=== PATIENT | female | born 1980 | race Caucasian/White ===

== ENCOUNTER 2016-12-24 09:49 | Emergency (ER) | payer SELFPAY ==
[2016-12-24 10:01] VITALS: RESP 17; TEMP 98.2
--- NOTE | 2016-12-24 11:00 | EDPHY ---
H & P Stated Complaint: red area l calf post 20 hr flight Time Seen by Provider: 12/24/16 10:10 HPI/ROS: CHIEF COMPLAINT: left calf pain HISTORY OF PRESENT ILLNESS: 36-year-old female presents emergency department complaining of left calf pain that she noticed this morning. Patient was on a 20 hour flight from [place] 2 days ago. She has a history of DVT. Patient denies chest pain or shortness of breath, no known trauma, no numbness or tingling to this extremity, no other complaints. REVIEW OF SYSTEMS: A comprehensive 10 point review of systems is otherwise negative aside from elements mentioned in the history of present illness. Source: Patient Exam Limitations: No limitations - Personal History LMP (Females 10-55): 15-21 Days Ago Current Tetanus/Diphtheria Vaccine: Unsure - Medical/Surgical History Hx Asthma: No Hx Chronic Respiratory Disease: No Hx Diabetes: No Hx Cardiac Disease: No Hx Renal Disease: No Hx Cirrhosis: No Hx Alcoholism: No Hx HIV/AIDS: No Hx Splenectomy or Spleen Trauma: No Other PMH: dvt/gastritis/thyroid issue - Social History Smoking Status: Current every day smoker - Physical Exam Exam: GEN: Awake, alert, oriented, no acute distress RESP: nl resp effort MSK: Left calf with no swelling, multiple varicosities, no mass, mild area of ecchymosis/hematoma to medial, proximal left calf. 2+ pedal pulses, sensation intact to light touch, full range of motion of left knee and ankle SKIN: No break in skin Constitutional: Initial Vital Signs Temperature (C) 36.8 C 12/24/16 09:58 Heart Rate 69 12/24/16 09:58 Respiratory Rate 17 12/24/16 09:58 Blood Pressure 130/79 H 12/24/16 09:58 O2 Sat (%) 97 12/24/16 09:58 O2 Delivery Mode Room Air Allergies/Adverse Reactions: No Known Allergies Allergy (Unverified 12/24/16 09:58) Home Medications: Medication Instructions Recorded Levothyroxine 12/24/16 Medical Decision Making - Diagnostics Imaging Results: Imaging Impressions Extremity Venous Study 12/24/16 10:10 Impression: No evidence of deep vein thrombosis. Findings discussed with Keyla Valadez NP 12/24/2016 at 10:53. Imaging: Discussed imaging studies w/ yard caller Radiologist ED Course/Re-evaluation: Ultrasound shows no evidence of DVT or Bee cyst. Pain is likely muscular in nature. I have recommended rest, ice, elevate, ibuprofen. She just arrived in [place] 2 days ago. She has been given primary care for follow-up. She is given return precautions. Differential Diagnosis: Diagnosis considered but not limited to muscle spasm, musculoskeletal strain, DVT Departure - Departure Disposition: Home, Routine, Self-Care Clinical Impression: Pain of left calf Condition: Good Instructions: Leg Pain (ED) Additional Instructions: Rest, ice or heat whichever feels better, take 600mg of ibuprofen every 8 hours for 3-5 days. Follow up with a primary care provider for continued symptoms in 5-7 days. Return to the ED for worsening symptoms, new symptoms or concerns. Referrals: [facility],. [Clinic] - As per Instructions (primary care clinic)
[2016-12-24 11:46] VITALS: BP 119/76; PULSE 81; O2SAT 95
== END 2016-12-24 11:44 | disposition home or self-care (01) ==
DX: M79.662 Pain in left lower leg (principal); F17.200 Nicotine dependence, unspecified, uncomplicated

== ENCOUNTER → 2018-07-03 | Outpatient (CLI) | payer OTHER | LOC: BMCIMAGING 13:48 | PROVIDERS: ATTEND Family Medicine | DX: R07.89 Other chest pain (principal) ==

== ENCOUNTER → 2018-07-04 | Outpatient (CLI) | payer OTHER | LOC: CIMAGING 07:19 | PROVIDERS: ATTEND Family Medicine | DX: R10.9 Unspecified abdominal pain (principal) | CPT/HCPCS: 76700-PO ==